=== PATIENT | female | born 1970 | race Two or more races ===

== ENCOUNTER 2018-09-11 12:37 | Emergency (ER) | payer OTHER ==
[~2018-09-11] VITALS: Ht 152.4 cm; Wt 87.0 kg
[2018-09-11] MEDS ORDERED: KETOROLAC 60MG/2ML VIAL IM STA (14:02)
[2018-09-11 15:44] VITALS: BP 129/84
== END 2018-09-11 15:45 | disposition home or self-care (01) ==
LOC: ER 12:37
DX: S83.8X2A Sprain of other specified parts of left knee, initial encounter (principal); M25.572 Pain in left ankle and joints of left foot; W50.2XXA Accidental twist by another person, initial encounter; Y93.89 Activity, other specified; Y92.89 Other specified places as the place of occurrence of the external cause; Y99.8 Other external cause status; Z90.49 Acquired absence of other specified parts of digestive tract; Z98.890 Other specified postprocedural states
CPT/HCPCS: 73560; 73610; 96372; 99283; J1885